=== PATIENT | female | born 2000 | race American Indian/Alaskan Native ===

== ENCOUNTER 2020-09-22 16:41 | Inpatient (IN) | payer OTHER ==
--- NOTE | 2020-09-22 20:57 | History and Physical Report ---
History of Present Illness Date of examination: 09/22/20 Date of admission: 09/22/20 18:10 Chief complaint: c/o uc times several hours History of present illness: 20 y/o female presented to [facility] @ 40. 1 wks with c/o uc times several hours. Pt admitted to active FM and denied VB or LOF. She initiated her pnc at [facility] at 10.4 wks. Uti was treated in preg. Social, surgical, family hx unremarkable. GBS is neg. Rubella equivocal. Pt was admitted to L&D for delivery. Labs: O pos AB neg pap normal, Rubella equivocal VDRL neg, HBsAg- neg HIV- neg, MSAFP- neg, 1 hr GTT 104 Hgb 11.7, GBS neg Past History Past Medical History: other (uti) Past Surgical History: no surgical history [employer] History: chlamydia Family/Genetic History: none Social history: no significant social history - Obstetrical History Expected Date of Delivery: 09/21/20 Actual Gestation: 40 Week(s) 1 Day(s) : 1 Para: 0 Medications and Allergies Allergies Allergy/AdvReac Type Severity Reaction Status Date / Time No Known Allergies Allergy Verified 09/22/20 18:10 Review of Systems All systems: negative Eyes: deferred Ears, nose, mouth and throat: deferred Breasts: normal Rectal Exam: deferred - Vital Signs Vital signs: Vital Signs Pulse Pulse Ox 100 H 97 09/22/20 17:04 09/22/20 17:04 Temp Pulse Resp BP Pulse Ox 97.9 F 92 H 20 116/67 96 09/22/20 18:11 09/22/20 19:09 09/22/20 18:11 09/22/20 18:11 09/22/20 19:09 - Physical Exam Breasts: Positive: normal Abdomen: Positive: normal appearance, soft, normal bowel sounds, other (gravid) Genitourinary (Female): Positive: normal external genitalia, normal perenium Vulva: both: normal Vagina: Positive: normal moisture Uterus: Positive: enlarged, normal contour, other (gravid) Adnexa: both: normal Anus/Rectum: Positive: normal perianal skin Extremities: Positive: normal - Obstetrical FHR: auscultation normal, category 1 Uterine Contraction Monitor Mode: External Cervical Dilatation: 3.5 (per nurse) Cervical Effacement Percentage: 70 (per nurse) station: -2 Uterine Contraction Frequency (min): q2-3 Uterine Contraction Pattern: Regular Uterine Tone Measurement Phase: Resting Uterine Contraction Intensity: Mild Results All other labs normal. Assessment and Plan A: IUP@ 40.1 wks Rubella equivocal P: Admit to L&D Continuous monitoring Pain med/Epidural prn Offer Rubella vaccine pp Anticipate
[2020-09-22] MEDS ORDERED: ePHEDrine SULFATE 50 MG/1 ML INJ IV PRN (21:06)
[2020-09-22] MEDS ORDERED: fentaNYL 100 MCG/2 ML INJ IV PRN (21:06)
[2020-09-22] MEDS ORDERED: MINERAL OIL 30 ML ORAL LIQD PO PRN (21:06)
[2020-09-22] MEDS ORDERED: BUTORPHANOL 2 MG/1 ML INJ IV PRN ×3 (21:06→21:58)
[2020-09-22] MEDS ORDERED: TERBUTALINE 1 MG/1 ML INJ SUB-Q PRN (21:06)
[2020-09-22] MEDS ORDERED: LACTATED RINGERS 1,000 ML IV SCH (21:15)
[2020-09-22 21:42] LABS: Hemoglobin 11.8 gm/dl (10.1-14.3); Mean Corpuscular HGB Conc 33 % (30-34); Mean Corpuscular Volume 79 fl (79-97); Platelet Count 219 K/mm3 (140-440); Red Blood Count 4.56 M/mm3 (3.65-5.03); Red Cell Distribution Width 15.8 % (13.2-15.2)
[2020-09-22] MEDS ORDERED: ONDANSETRON 4 MG/2 ML INJ IV PRN (21:58)
[2020-09-22] MEDS ORDERED: LIDOCAINE (2%) 20 MG/1 ML VIAL 20 ML MDV INFILTRATI ONE ×2 (21:58→22:00)
[2020-09-22] MEDS ORDERED: OXYTOCIN DRIP 30 UNITS/500 ML BAG IV SCH (22:00)
[2020-09-22 23:08] LABS: Hematocrit 34.2 % (30.3-42.9); Hemoglobin 11.1 gm/dl (10.1-14.3)
[2020-09-23] MEDS ORDERED: NalbUPHINE 10 MG/1 ML INJ IV PRN (00:57)
[2020-09-23] MEDS ORDERED: NALOXONE 2 MG/2 ML INJ IV PRN (00:57)
[2020-09-23] MEDS ORDERED: diphenhydrAMINE 50 MG/ML VIAL IV PRN (00:57)
[2020-09-23] MEDS ORDERED: fentaNYL-BUPIV 2 MCG/ML-0.125% 200 MCG/100 ML BAG EPIDURAL SCH (01:00)
--- NOTE | 2020-09-23 01:20 | Progress Note ---
Labor Epidural - Labor Epidural Start Time: 01:00 Stop Time: 01:17 Performed by:: LASHA YANG Procedure: Patient is requesting epidural for labor and pain. H&P, labs were reviewed. Patient IDed, H&P reviewed, all questions and concerns were answered, and consent was signed. Timeout was performed at bedside. Patient in sitting position. Sterile prep and drape was performed. 3ml of 1% lidocaine skin wheal at L[3]- L [4]. 18-gauge Tuohy epidural needle was advanced to loss of resistance with air technique cm. Negative CSF negative blood. Epidural catheter advanced to [12 ] centimeters. [negative] Aspiration [negative] test dose. Sterile dressing applied. Patient tolerated procedure.
--- NOTE | 2020-09-23 01:20 | Anesthesia Consultation ---
Anesthesia Consult and Med Hx Date of service: 09/23/20 - Airway Anesthetic Teeth Evaluation: Good ROM Head & Neck: Adequate Mental/Hyoid Distance: Adequate Mallampati Class: Class II Intubation Access Assessment: Probably Good - Pulmonary Exam CTA: Yes - Cardiac Exam Cardiac Exam: RRR - Pre-Operative Health Status ASA Pre-Surgery Classification: ASA2 Proposed Anesthetic Plan: Epidural - Pulmonary Hx Smoking: No Hx Asthma: No COPD: No Hx Sleep Apnea: No - Cardiovascular System Hx Hypertension: No Hx Heart Attack/AMI: No Hx Angina: No - Central Nervous System Hx Seizures: No Hx Psychiatric Problems: No - Gastrointestinal Hx Gastroesophageal Reflux Disease: No - Endocrine Hx Renal Disease: No Hx End Stage Renal Disease: No Hx Insulin Dependent Diabetes: No Hx Non-Insulin Dependent Diabetes: No Hx Hypothyroidism: No Hx Hyperthyroidism: No - Hematic Hx Anemia: No Hx Sickle Cell Disease: No - Other Systems Hx Alcohol Use: No
[2020-09-23] MEDS ORDERED: MAGNESIUM HYDROXIDE (MOM) ORAL LIQD UDC PO PRN (13:09)
[2020-09-23] MEDS ORDERED: oxyCODONE /ACETAMINOPHEN 5-325MG TAB PO PRN (13:09)
[2020-09-23] MEDS ORDERED: WITCH HAZEL/ GLYCERIN PAD TP PRN (13:09)
[2020-09-23] MEDS ORDERED: PROMETHAZINE 25 MG TAB PO PRN (13:09)
[2020-09-23] MEDS ORDERED: diphenhydrAMINE 25 MG CAP PO PRN (13:09)
[2020-09-23] MEDS ORDERED: LANOLIN/ZINC/DIMETHICONE (LANSINOH) 7 GM TP PRN (13:09)
--- NOTE | 2020-09-23 13:16 | Procedure Note ---
OB Delivery Note - Delivery Date of Delivery: 09/23/20 (4129) Surgeon: RADHA KHALIL (CNM) Estimated blood loss: 300cc - Vaginal Delivery presentation: vertex Delivery position: OA (ABBEY) Delivery augmentation: rupture of membranes (AROM @ 0624) Delivery monitor: external FHT, external uterine Route of delivery: Delivery placenta: spontaneous (1248, duffy) Delivery cord: 3 umbilical vessels Episiotomy: none Delivery laceration: 2nd degree (perineum) Delivery repair: vicryl (3.0 - CT) Anesthesia: epidural Delivery comments: of viable, crying male placed directly on maternal abdomen. Cord double clamped and cut by myself. Cord blood collected, results pending. Placenta spontaneously delivered, disposed. Uterus firm @ U-@. Perinuem with 2nd degree laceration, repaired. Hemostasis maintained. Mother and baby safe, stable and left in care of RN. - Infant A at 1 minute: 8 at 5 minutes: 9 Infant Gender: Male (Weight: 3824 gms (8lbs 7ozs) 20 inches)
[2020-09-23] MEDS: IBUPROFEN 600 MG TAB PO SCH (18:44)
[2020-09-24 01:01] LABS: Hematocrit 23.5 % (30.3-42.9); Hemoglobin 7.9 gm/dl (10.1-14.3)
[2020-09-24] MEDS: IBUPROFEN 600 MG TAB PO SCH ×5 (06:12→20:00)
[2020-09-24] MEDS: PRENATAL VIT27-FE FUMARATE-FOLIC ACID VIT TAB PO SCH (09:08)
--- NOTE | 2020-09-24 09:50 | Progress Note ---
Assessment and Plan A: day 1 S/P . Anemia. P: Supplement with iron. Anticipate discharge home tomorrow if patient continues to do well. Subjective - Subjective Date of service: 09/24/20 Principal diagnosis: day 1 S/P Patient reports: appetite normal, voiding normally, pain well controlled, flatus, ambulating normally, no dizzy ambulation, no nauseated [place]: doing well Objective - Vital Signs Latest vital signs: Vital Signs Temp Pulse Resp BP BP Pulse Ox 09/24/20 08:15 97.8 F 95 H 18 111/62 98 09/24/20 01:11 97.7 F 92 H 18 95/56 98 09/23/20 21:09 98.3 F 105 H 20 118/64 97 09/23/20 14:45 97.9 F 91 H 18 105/54 09/23/20 14:27 95 H 98 09/23/20 14:22 113 H 98 09/23/20 14:17 95 H 97 09/23/20 14:12 102 H 97 09/23/20 14:07 102 H 97 09/23/20 14:02 105 H 98 09/23/20 13:57 131 H 98 09/23/20 13:52 107 H 98 09/23/20 13:47 110 H 97 09/23/20 13:42 117 H 97 09/23/20 13:37 111 H 96 09/23/20 13:32 151 H 97 09/23/20 13:27 105 H 96 09/23/20 13:23 110 H 109/78 09/23/20 13:22 122 H 97 09/23/20 13:17 116 H 95 09/23/20 13:12 118 H 95 09/23/20 13:07 114 H 96 09/23/20 13:02 114 H 98 09/23/20 12:57 118 H 97 09/23/20 12:53 110 H 113/57 09/23/20 12:52 106 H 97 09/23/20 12:47 104 H 96 09/23/20 12:42 152 H 96 09/23/20 12:39 156 H 92 09/23/20 12:37 127 H 97 09/23/20 12:32 162 H 96 09/23/20 12:27 104 H 97 09/23/20 12:23 94 H 133/61 01/29/21 12:22 98 H 97 09/23/20 12:17 97 H 98 09/23/20 12:12 99 H 96 09/23/20 12:07 104 H 96 09/23/20 12:06 81 94 09/23/20 12:02 89 98 09/23/20 12:01 81 94 09/23/20 11:57 90 92 09/23/20 11:55 87 93 09/23/20 11:53 87 112/61 09/23/20 11:52 85 93 09/23/20 11:49 82 93 09/23/20 11:47 101 H 96 09/23/20 11:43 84 90 09/23/20 11:42 104 H 97 09/23/20 11:38 84 91 09/23/20 11:37 83 98 09/23/20 11:32 83 90 09/23/20 11:27 83 89 09/23/20 11:24 80 118/61 09/23/20 11:22 86 96 09/23/20 11:19 78 94 09/23/20 11:17 96 H 97 09/23/20 11:13 80 94 09/23/20 11:12 89 99 09/23/20 11:07 84 98 09/23/20 11:06 84 93 09/23/20 11:02 80 96 09/23/20 11:00 84 93 09/23/20 10:57 105 H 98 09/23/20 10:54 84 94 09/23/20 10:53 89 116/59 09/23/20 10:52 97 H 99 09/23/20 10:48 80 93 09/23/20 10:47 78 108/61 98 09/23/20 10:44 84 109/58 09/23/20 10:42 85 95 09/23/20 10:38 79 112/62 09/23/20 10:37 109 H 99 09/23/20 10:36 82 91 09/23/20 10:33 79 114/64 09/23/20 10:32 88 97 09/23/20 10:29 83 108/60 94 09/23/20 10:27 81 96 09/23/20 10:24 98 H 94 09/23/20 10:23 85 107/57 09/23/20 10:22 82 96 09/23/20 10:18 108 H 131/74 09/23/20 10:17 86 94 09/23/20 10:14 100 H 117/64 09/23/20 10:12 84 95 09/23/20 10:09 87 94 09/23/20 10:08 93 H 116/56 09/23/20 10:07 92 H 98 09/23/20 10:03 106 H 107/61 09/23/20 10:02 100 H 99 09/23/20 09:59 102 H 115/56 09/23/20 09:57 114 H 98 09/23/20 09:53 110 H 175/77 09/23/20 09:52 119 H 96 Intake and Output 09/23/20 09/24/20 09/24/20 23:59 07:59 15:59 Intake Total 720 240 Output Total 300 300 Balance -300 420 240 Intake: Oral 240 Intake, Free Water 720 Output: Urine 300 300 Void 300 300 Other: Total, Intake Amount 240 Total, Output Amount 300 300 # Voids Void 1 1 - Exam Cardiovascular: Present: Regular rate Lungs: Present: Clear to auscultation Abdomen: Present: normal appearance, soft. Absent: distention, tenderness, guarding, rigidity Uterus: Present: normal, firm, fundal height below umbilicus. Absent: bogginess, tenderness Extremities: Present: normal. Absent: tenderness - Labs Labs: Abnormal lab results 09/24/20 Range/Units 00:25 Hgb 7.9 L D (10.1-14.3) gm/dl Hct 23.5 L D (30.3-42.9) %
--- NOTE | 2020-09-24 10:19 | Post Anesthesia Evaluation ---
- Post Anesthesia Evaluation Patient Participated: Yes Airway Patent: Yes Stable Respiratory Function: Yes Nausea/Vomiting: No Temp > 96.8F: Yes Pain Manageable: Yes Adequeate Hydration: Yes Anesthesia Complications: No Block Receding Appropriately: Yes Patient on Ventilator: No
[2020-09-24] MEDS: FERROUS SULFATE 325 MG TAB PO SCH ×2 (10:48→22:12)
[2020-09-25] MEDS: IBUPROFEN 600 MG TAB PO SCH ×2 (02:30→12:06)
[2020-09-25] MEDS ORDERED: MEASLES, MUMPS & RUBELLA 12,500 UNIT/0.5 ML VACCINE SUB-Q ONE ×2 (08:00→12:00)
[2020-09-25] MEDS: PRENATAL VIT27-FE FUMARATE-FOLIC ACID VIT TAB PO SCH (10:20)
[2020-09-25] MEDS: FERROUS SULFATE 325 MG TAB PO SCH (10:20)
--- NOTE | 2020-09-25 10:51 | Progress Note ---
Assessment and Plan A: day 2 S/P . Anemia. P: Repeat H/H pending. Plan discharge home later today if H/H is stable. Subjective - Subjective Date of service: 09/25/20 Principal diagnosis: day 2 S/P Interval history: Denies leg pain, chest pain, shortness of breath, cough, or dizziness. Repeat H/H pending. Patient reports: appetite normal, voiding normally, pain well controlled, flatus , ambulating normally, no dizzy ambulation, no nauseated [place]: doing well Objective - Vital Signs Latest vital signs: Vital Signs Temp Pulse Resp BP BP Pulse Ox 09/25/20 08:14 98.2 F 101 H 20 114/67 97 09/25/20 00:33 97.4 F L 102 H 18 112/69 96 09/24/20 15:21 97.6 F 104 H 18 116/68 94 09/24/20 12:05 98 F 80 18 110/62 98 Intake and Output 09/24/20 09/25/20 09/25/20 23:59 07:59 15:59 Intake Total 360 360 Balance 360 360 Intake: Oral 360 Intake, Free Water 360 Other: Total, Intake Amount 120 # Voids Void 1 - Exam Cardiovascular: Present: Regular rate Lungs: Present: Clear to auscultation Abdomen: Present: normal appearance, soft. Absent: distention, tenderness, guarding, rigidity Uterus: Present: normal, firm, fundal height below umbilicus. Absent: bogginess, tenderness Extremities: Present: normal. Absent: tenderness, edema
[2020-09-25 12:40] LABS: Hematocrit 25.9 % (30.3-42.9); Hemoglobin 8.5 gm/dl (10.1-14.3)
[2020-09-25 13:27] LABS: Bilirubin,Urine NEG (Negative); Blood,Urine MOD (Negative); Color,Urine Yellow (Yellow); Mucus,Urine FEW /HPF; Protein,Urine <15 mg/dL mg/dL (Negative); Urobilinogen,Urine < 2.0 mg/dL (<2.0)
--- NOTE | 2020-09-25 14:00 | Discharge Summary ---
Providers - Providers Date of Admission: 09/22/20 21:58 Date of discharge: 09/25/20 Attending physician: HUNTER QUINTERO MD Primary care physician: HUNTER QUINTERO MD Hospitalization Reason for admission: active labor Delivery: Episiotomy: none Laceration: 1st degree Other procedures: none complications: none Discharge diagnosis: IUP at term delivered Pertinent studies: Labs Hospital course: Stable hospital course. Condition at discharge: Good Disposition: DC-01 TO HOME OR SELFCARE - Discharge Diagnoses (1) Term delivered Status: Acute (2) Anemia Status: Acute Plan - Provider Discharge Summary Activity: routine, no sex for 6 weeks, no heavy lifting 4 weeks, no strenuous exercise Diet: routine Instructions: routine Additional instructions: Continue taking your vitamins and iron supplements at home. Take Augmentin 500 mg by mouth every 12 hours for 1 week (Rx has been called in to [facility] pharmacy on [address]). Follow up at [facility] in 6 weeks and as needed. Call your doctor immediately for: * Fever > 100.5 * Heavy vaginal bleeding ( >1 pad per hour) * Severe persistent headache * Shortness of breath * Reddened, hot, painful area to leg or breast - Follow up plan Follow up: HUNTER QUINTERO MD [Primary Care Provider] - 6 Weeks
[2020-09-25 18:12] VITALS: BP 113/68
== END 2020-09-25 16:25 | disposition home or self-care (01) | DRG 807 ==
LOC: TRG 16:41 → APU 16:43 → UNDOADMOB 18:10 → LD 18:10 → TRG 18:10 → OBSVTOIN 21:58 → LD 21:58 → OB 09-23 14:52
PROVIDERS: ADMIT Obstetrics & Gynecology; ATTEND Obstetrics & Gynecology
PROC: 10E0XZZ Delivery of Products of Conception, External Approach (ICD-10-PCS; principal; 2020-09-23)
PROC: 0KQM0ZZ Repair Perineum Muscle, Open Approach (ICD-10-PCS; 2020-09-23)
PROC: 3E0R3BZ Introduction of Anesthetic Agent into Spinal Canal, Percutaneous Approach (ICD-10-PCS; 2020-09-23)
PROC: 00HU33Z Insertion of Infusion Device into Spinal Canal, Percutaneous Approach (ICD-10-PCS; 2020-09-23)
PROC: 10907ZC Drainage of Amniotic Fluid, Therapeutic from Products of Conception, Via Natural or Artificial Opening (ICD-10-PCS; 2020-09-23)
PROC: 3E0234Z Introduction of Serum, Toxoid and Vaccine into Muscle, Percutaneous Approach (ICD-10-PCS; 2020-09-25)
DX: O70.1 Second degree perineal laceration during delivery (principal); Z37.0 Single live birth; O99.02 Anemia complicating childbirth; Z20.822 Contact with and (suspected) exposure to COVID-19; Z23 Encounter for immunization; Z3A.40 40 weeks gestation of pregnancy
CPT/HCPCS: 36415; 59025; 81001; 85014; 85018; 85027; 86592; 86850; 86900; 86901; 90707; 96360; 96361; 96365; 96366; 96367; G0378; J3010; J7120; U0003